=== PATIENT | female | born 1985 | race Caucasian/White ===

== ENCOUNTER → 2017-02-12 | Outpatient (CLI) | payer OTHER ==
--- NOTE | 2017-02-12 10:43 | DIAGNOSTIC IMAGING REPORT ---
LUMBAR SPINE 5 VIEWS HISTORY: LOWER BACK PAIN COMPARISON: None. FINDINGS: There is no fracture. No subluxation. Disc spaces are preserved. IMPRESSION: No fracture or subluxation within the lumbar spine. Electronically signed by: Colt Davis M.D. 02/12/2017 10:41 AM Dictated Date/Time: 02/12/2017 10:40 AM
[2017-02-16 00:25] LABS: MUMPS IgG VALUE 1.93
== END | disposition home or self-care (01) ==
LOC: C.RADBC 10:11
PROVIDERS: ATTEND Nurse Practitioner Family
DX: M54.5 Low back pain (principal)

== ENCOUNTER → 2017-10-20 | Outpatient (CLI) | payer OTHER | END | disposition home or self-care (01) | LOC: C.PAPS 09:17 | PROVIDERS: ATTEND Obstetrics & Gynecology | DX: Z12.4 Encounter for screening for malignant neoplasm of cervix (principal) ==